=== PATIENT | male | born 1955 | race Caucasian/White ===

== ENCOUNTER 2021-04-28 09:55 | Inpatient (IN) ==
[2021-04-28] MEDS ORDERED: 0.9 % Sodium Chloride 500 ML IVC ONE ×2 (10:07→17:49)
[2021-04-28] MEDS ORDERED: Isovue-370 500 ML BOTTLE IVP ONE (10:07)
[2021-04-28] MEDS ORDERED: *HR* Heparin 5,000 UNIT/ML VIAL IVP STA (10:10)
[2021-04-28] MEDS ORDERED: *HR* FentaNYL (PF) 100 MCG/2 ML VIAL ONE ×2 (10:25→11:25)
[2021-04-28] MEDS ORDERED: ISOVUE-370 200 ML INFUS..BTL ONE ×2 (10:25→12:16)
[2021-04-28] MEDS ORDERED: *HR* Midazolam HCl 2 MG/2 ML VIAL ONE ×2 (10:25→13:01)
[2021-04-28] MEDS ORDERED: Nitroglycerin 1,000 MCG/5 ML VIAL IV ONE (10:25)
[2021-04-28] MEDS ORDERED: *HR* Heparin 10,000 UNIT/10 ML VIAL ONE (10:25)
[2021-04-28] MEDS ORDERED: Heparin 1,000 UNITS/500 mL 500 ML ONE ×2 (10:25→12:26)
[2021-04-28] MEDS ORDERED: 0.9 % Sodium Chloride 2,000 ML ONE (10:25)
[2021-04-28 10:30] LABS: Basophils # 0.1 K/mcL (0.0-0.2); Basophils % 0.5 %; Eosinophils % 0.1 %; Hemoglobin 15.8 g/dL (12.9-16.9); Immature Granulocytes % 0.9 % (0-4); Lymphocytes # 2.5 K/mcL (0.6-4.6); Lymphocytes % 14.8 %; Mean Corpuscular HGB Conc 31.6 g/dL (31.6-35.5); Mean Corpuscular Hemoglobin 30.1 pg (28.0-33.3); Mean Corpuscular Volume 95.2 fL (83.0-100.0); Mean Platelet Volume 9.9 fL (9.4-12.4); Monocytes # 1.7 K/mcL (0.0-1.3); Monocytes % 9.9 %; Neutrophils # 12.6 K/mcL (1.6-8.9); Platelet Count 341 K/mcL (140-400); Red Blood Count 5.25 M/mcL (4.19-5.50); Red Cell Distribution Width 15.3 % (11.5-14.5); Segmented Neutrophils % 73.8 %
[2021-04-28] MEDS ORDERED: Ipratropium/Albuterol Neb 3 ML ONE (10:32)
[2021-04-28] MEDS ORDERED: Ipratropium/Albuterol Neb 3 ML IH ONE (10:35)
[2021-04-28 10:43] LABS: INR 1.1
[2021-04-28 10:45] LABS: Activated Partial Thrombo Time 26.2 Seconds (26.0-36.0)
[2021-04-28] MEDS ORDERED: Furosemide 40 MG/4 ML VIAL IVP ONE (10:54)
[2021-04-28] MEDS ORDERED: Nitroglycerin 0.4 MG TAB.SUBL SL STA (10:57)
[2021-04-28] MEDS ORDERED: Nitroglycerin 0.4 MG TAB.SUBL SL ONE (10:58)
[2021-04-28] MEDS: Furosemide 20 MG/2 ML VIAL IVP ONE (11:00)
[2021-04-28 11:01] LABS: BUN/Creatinine Ratio 15 (6-26); Blood Urea Nitrogen 21 mg/dL (8-23); Calcium 8.6 mg/dL (8.6-10.3); Carbon Dioxide 18 mEq/L (23-29); Chloride 100 mEq/L (98-107); Glucose 188 mg/dL (70-105); Magnesium 2.3 mg/dL (1.6-2.6); Osmolality,Calculated 288 (280-300); Potassium 3.9 mEq/L (3.5-5.1); Sodium 135 mEq/L (136-145); eGFR For African Americans > 60 (> 60); eGFR For Non-African Americans 52 (> 60)
[2021-04-28] MEDS ORDERED: *HR* Etomidate 20 MG/10 ML AMPUL IVP ONE ×2 (11:08→12:52)
[2021-04-28] MEDS ORDERED: *HR* Rocuronium Bromide 50 MG/5 ML VIAL IVP ONE ×2 (11:08→12:52)
[2021-04-28] MEDS ORDERED: *HR* Propofol 200 MG/20 ML VIAL IVP STA (11:09)
[2021-04-28] MEDS ORDERED: Ondansetron 4 MG/2 ML VIAL IVP ONE (11:24)
[2021-04-28] MEDS ORDERED: *HR* FentaNYL (PF) 100 MCG/2 ML VIAL IVP STA (11:24)
[2021-04-28] MEDS ORDERED: Ondansetron 4 MG/2 ML VIAL ONE (11:25)
[2021-04-28] MEDS ORDERED: Furosemide 240 MG in 0.9 % Sodium Chloride 96 ML IVC SCH (12:15)
[2021-04-28] MEDS ORDERED: Tirofiban 12.5 MG/250ML 12.5 MG/250 ML BAG ONE (12:50)
[2021-04-28] MEDS ORDERED: *HR* Heparin 5,000 UNIT/ML VIAL IVP PRN ×2 (13:19→13:39)
[2021-04-28] MEDS: Tirofiban 12.5 MG/250ML 12.5 MG/250 ML BAG IVC SCH (13:30)
[2021-04-28] MEDS ORDERED: Heparin 25,000UNIT/250ML 1/2NS 25,000 UNIT/250 ML IV.SOLN IVC SCH (13:45)
[2021-04-28] MEDS ORDERED: 0.9 % Sodium Chloride 1,000 ML ONE (13:58)
[2021-04-28] MEDS: Norepinephrine 4 MG/254 ML IV.SOLN IVC SCH (15:05)
[2021-04-28] MEDS: FentaNYL (PF) 1,000 MCG/100 ML IV.SOLN IVC SCH (15:55)
[2021-04-28] MEDS: Albumin 25% 25gram/100mL 25 GM/100 ML IV.SOLN IVPB SCH ×2 (15:55→23:05)
[2021-04-28] MEDS ORDERED: Perflutren Lipid Microsphere 1.3 ML in 0.9 % Sodium Chloride 8.7 ML IVP PRN (16:50)
[2021-04-28] MEDS ORDERED: Artificial Tears SOLN 15 ML BOTTLE BOTH EYES PRN (16:53)
[2021-04-28] MEDS ORDERED: 0.9 % Sodium Chloride 500 ML ONE (17:51)
[2021-04-28 17:53] LABS: VBG HCO3 23 mEq/L (21-27); VBG PCO2 54 mmHg (41-51); VBG PH 7.23 pH Units (7.32-7.42); VBG PO2 58 mmHg (25-50)
[2021-04-28 18:06] LABS: Blood Gas FiO2 88.3 %
[2021-04-28 18:06] LABS: ABG Base Excess -6 mEq/L (-2 to 3); ABG HCO3 22 mEq/L (21-27); ABG Oxygen Saturation 98 % (95-98); ABG PCO2 48 mmHg (35-45); ABG PH 7.26 pH Units (7.32-7.45); ABG PO2 130 mmHg (85-104); ABG TCO2 23 mEq/L (20-26); Blood Gas Modality ASSIST CONTROL; Blood Gas VT 500 cc
[2021-04-28 18:29] LABS: Blood Gas VT 500 cc; Mixed Venous Blood pCO2 56 mmHg (44-46); Mixed Venous Blood pH 7.26 pH Units (7.34-7.36); Mixed Venous Blood pO2 34 mmHg (35-45)
[2021-04-28 19:28] LABS: Influenza A PCR Negative (Negative); Influenza B PCR Negative (Negative); Resp. Syncytial Virus PCR Negative (Negative)
[2021-04-28 19:29] LABS: SARS-CoV-2 by PCR (In House) Negative (Negative)
[2021-04-28 19:57] LABS: Hematocrit 42.5 % (37.5-50.1); Mean Corpuscular HGB Conc 32.7 g/dL (31.6-35.5); Mean Corpuscular Hemoglobin 30.8 pg (28.0-33.3); Mean Corpuscular Volume 94.2 fL (83.0-100.0); Mean Platelet Volume 9.4 fL (9.4-12.4); Platelet Count 283 K/mcL (140-400); Red Blood Count 4.51 M/mcL (4.19-5.50); Red Cell Distribution Width 15.2 % (11.5-14.5); White Blood Count 14.7 K/mcL (4.3-11.1)
[2021-04-28] MEDS: Artificial Tears SOLN 15 ML BOTTLE BOTH EYES SCH ×2 (19:58→23:41)
[2021-04-28 19:59] LABS: Hemoglobin 13.9 g/dL (12.9-16.9)
[2021-04-28 19:59] LABS: Blood Gas VT 500 cc; Mixed Venous Blood pCO2 47 mmHg (44-46); Mixed Venous Blood pH 7.32 pH Units (7.34-7.36); Mixed Venous Blood pO2 29 mmHg (35-45)
[2021-04-28 20:00] LABS: VBG Ionized Calcium 0.96 mmol/L (1.15-1.35)
[2021-04-28] MEDS: Chlorhexidine Rinse 15 ML MOUTHWASH MM SCH (20:00)
[2021-04-28 20:08] LABS: ABG Base Excess -2 mEq/L (-2 to 3); ABG HCO3 24 mEq/L (21-27); ABG Oxygen Saturation 95 % (95-98); ABG PCO2 44 mmHg (35-45); ABG PH 7.34 pH Units (7.32-7.45); ABG PO2 82 mmHg (85-104); ABG TCO2 25 mEq/L (20-26); Blood Gas Modality ASSIST CONTROL; Blood Gas VT 500 cc
[2021-04-28 20:10] LABS: Heparin anti-factor XA UFH < 0.04 IU/mL (0.30-0.70); INR 1.1; Prothrombin Time 12.6 Seconds (9.4-12.1)
[2021-04-28] MEDS: Milrinone Premix 20 MG/100 ML 20 MG/100 ML BAG IVC SCH (20:51)
[2021-04-28] MEDS: Midazolam HCl 50 MG/100 ML IV.SOLN IVC SCH (21:00)
[2021-04-28 21:14] LABS: BUN/Creatinine Ratio 18 (6-26); Blood Urea Nitrogen 22 mg/dL (8-23); Calcium 7.6 mg/dL (8.6-10.3); Carbon Dioxide 20 mEq/L (23-29); Chloride 105 mEq/L (98-107); Glucose 117 mg/dL (70-105); Magnesium 2.1 mg/dL (1.6-2.6); Osmolality,Calculated 284 (280-300); Potassium 5.6 mEq/L (3.5-5.1); Sodium 135 mEq/L (136-145); eGFR For African Americans > 60 (> 60); eGFR For Non-African Americans 59 (> 60)
[2021-04-28 21:38] LABS: Blood Gas VT 500 cc; Mixed Venous Blood pCO2 51 mmHg (44-46); Mixed Venous Blood pO2 31 mmHg (35-45)
[2021-04-28 22:25] LABS: Blood Gas VT 500 cc; Mixed Venous Blood pCO2 43 mmHg (44-46); Mixed Venous Blood pH 7.35 pH Units (7.34-7.36); Mixed Venous Blood pO2 32 mmHg (35-45)
[2021-04-28] MEDS ORDERED: 0.9 % Sodium Chloride 250 ML IVC ONE (22:30)
[2021-04-29] MEDS: FentaNYL (PF) 1,000 MCG/100 ML IV.SOLN IVC SCH ×4 (00:12→23:30)
[2021-04-29] MEDS: Tirofiban 12.5 MG/250ML 12.5 MG/250 ML BAG IVC SCH (02:00)
[2021-04-29] MEDS: Norepinephrine 4 MG/254 ML IV.SOLN IVC SCH ×3 (03:21→21:22)
[2021-04-29] MEDS: Artificial Tears SOLN 15 ML BOTTLE BOTH EYES SCH ×6 (03:21→23:31)
[2021-04-29 04:15] LABS: VBG Ionized Calcium 1.07 mmol/L (1.15-1.35)
[2021-04-29 04:25] LABS: Alanine Aminotransferase 62 Units/L (7-52); Albumin 3.2 g/dL (3.5-5.7); Albumin/Globulin Ratio 1.5 (1.1-2.2); Alkaline Phosphatase 71 Units/L (34-104); Aspartate Amino Transferase 221 Units/L (13-39); BUN/Creatinine Ratio 21 (6-26); Bilirubin,Direct 0.1 mg/dL (0.0-0.2); Bilirubin,Indirect 0.4 mg/dL (0.0-1.0); Bilirubin,Total 0.5 mg/dL (0.3-1.0); Blood Urea Nitrogen 22 mg/dL (8-23); Calcium 7.6 mg/dL (8.6-10.3); Carbon Dioxide 25 mEq/L (23-29); Chloride 106 mEq/L (98-107); Chol/HDL Ratio 9.5 (0-4.9); Cholesterol 161 mg/dL (< 200); Globulin 2.1 g/dL (2.4-3.5); Glucose 108 mg/dL (70-105); HDL Cholesterol 17 mg/dL (40-59); LDL Cholesterol,Calculated 104 mg/dL (< 100); Magnesium 2.1 mg/dL (1.6-2.6); Osmolality,Calculated 288 (280-300); Phosphorous 3.8 mg/dL (2.7-4.5); Potassium 3.9 mEq/L (3.5-5.1); Sodium 137 mEq/L (136-145); Total Protein 5.3 g/dL (6.4-8.9); Triglycerides 200 mg/dL (< 150); eGFR For African Americans > 60 (> 60); eGFR For Non-African Americans > 60 (> 60)
[2021-04-29 04:39] LABS: Blood Gas VT 500 cc; Mixed Venous Blood pCO2 46 mmHg (44-46); Mixed Venous Blood pH 7.35 pH Units (7.34-7.36); Mixed Venous Blood pO2 39 mmHg (35-45)
[2021-04-29 04:44] LABS: ABG Base Excess 0 mEq/L (-2 to 3); ABG HCO3 25 mEq/L (21-27); ABG Oxygen Saturation 95 % (95-98); ABG PCO2 43 mmHg (35-45); ABG PH 7.37 pH Units (7.32-7.45); ABG PO2 77 mmHg (85-104); ABG TCO2 26 mEq/L (20-26); Blood Gas VT 500 cc
[2021-04-29 05:01] LABS: Basophils # 0.1 K/mcL (0.0-0.2); Basophils % 0.4 %; Eosinophils % 0.3 %; Hemoglobin 12.7 g/dL (12.9-16.9); Immature Granulocytes % 0.6 % (0-4); Lymphocytes # 1.9 K/mcL (0.6-4.6); Mean Corpuscular HGB Conc 31.8 g/dL (31.6-35.5); Mean Corpuscular Hemoglobin 29.9 pg (28.0-33.3); Mean Corpuscular Volume 94.1 fL (83.0-100.0); Mean Platelet Volume 10.2 fL (9.4-12.4); Monocytes # 1.6 K/mcL (0.0-1.3); Neutrophils # 9.9 K/mcL (1.6-8.9); Platelet Count 283 K/mcL (140-400); Red Blood Count 4.25 M/mcL (4.19-5.50); Red Cell Distribution Width 15.4 % (11.5-14.5); Segmented Neutrophils % 72.7 %; White Blood Count 13.6 K/mcL (4.3-11.1)
[2021-04-29] MEDS: Calcium Gluconate 1gm/50mL 1 GM/50 ML BAG IVPB PRN (05:36)
[2021-04-29] MEDS: Milrinone Premix 20 MG/100 ML 20 MG/100 ML BAG IVC SCH (06:36)
[2021-04-29] MEDS: Chlorhexidine Rinse 15 ML MOUTHWASH MM SCH ×2 (08:07→20:04)
[2021-04-29] MEDS: Pantoprazole 40 MG VIAL IVP SCH ×2 (08:08→15:11)
[2021-04-29] MEDS: Aspirin 81 MG TAB.CHEW PO SCH (08:17)
[2021-04-29] MEDS ORDERED: D5% in Water 250 ML ONE (08:36)
[2021-04-29] MEDS ORDERED: Pantoprazole 40 MG VIAL IVP SCH (09:00)
[2021-04-29] MEDS: Heparin 25,000UNIT/250ML 1/2NS 25,000 UNIT/250 ML IV.SOLN IVC SCH (09:37)
[2021-04-29] MEDS: Midazolam HCl 50 MG/100 ML IV.SOLN IVC SCH ×2 (10:00→19:13)
[2021-04-29 10:57] LABS: ABG Base Excess 0 mEq/L (-2 to 3); ABG HCO3 25 mEq/L (21-27); ABG Oxygen Saturation 97 % (95-98); ABG PCO2 41 mmHg (35-45); ABG PO2 96 mmHg (85-104); ABG TCO2 27 mEq/L (20-26); Blood Gas VT 500 cc
[2021-04-29 10:57] LABS: Estimated Average Glucose 114 mg/dl; Hemoglobin A1C 5.6 %
[2021-04-29 11:02] LABS: Blood Gas VT 500 cc; Mixed Venous Blood pCO2 42 mmHg (44-46); Mixed Venous Blood pH 7.39 pH Units (7.34-7.36); Mixed Venous Blood pO2 36 mmHg (35-45)
[2021-04-29] MEDS: Furosemide 240 MG in 0.9 % Sodium Chloride 96 ML IVC SCH (11:07)
[2021-04-29] MEDS: Dexmedetomidine HCl 400 MCG/100 ML MLS IVC SCH ×3 (11:18→20:04)
[2021-04-29] MEDS: Albumin 25% 25gram/100mL 25 GM/100 ML IV.SOLN IVPB SCH ×3 (11:26→23:31)
[2021-04-29 16:22] LABS: Blood Gas VT 500 cc; Mixed Venous Blood pCO2 44 mmHg (44-46); Mixed Venous Blood pH 7.42 pH Units (7.34-7.36); Mixed Venous Blood pO2 35 mmHg (35-45)
[2021-04-29 23:41] LABS: Blood Gas VT 500 cc; Mixed Venous Blood pCO2 40 mmHg (44-46); Mixed Venous Blood pH 7.46 pH Units (7.34-7.36); Mixed Venous Blood pO2 36 mmHg (35-45)
[2021-04-30] MEDS: Dexmedetomidine HCl 400 MCG/100 ML MLS IVC SCH ×7 (00:09→23:37)
[2021-04-30] MEDS: Heparin 25,000UNIT/250ML 1/2NS 25,000 UNIT/250 ML IV.SOLN IVC SCH ×2 (02:48→21:33)
[2021-04-30] MEDS: Artificial Tears SOLN 15 ML BOTTLE BOTH EYES SCH ×6 (03:07→23:34)
[2021-04-30 03:26] LABS: Basophils # 0.1 K/mcL (0.0-0.2); Basophils % 0.7 %; Eosinophils # 0.1 K/mcL (0.0-0.6); Eosinophils % 0.5 %; Hematocrit 41.7 % (37.5-50.1); Hemoglobin 13.6 g/dL (12.9-16.9); Immature Granulocytes % 0.6 % (0-4); Lymphocytes # 2.2 K/mcL (0.6-4.6); Lymphocytes % 12.7 %; Mean Corpuscular HGB Conc 32.6 g/dL (31.6-35.5); Mean Corpuscular Hemoglobin 30.4 pg (28.0-33.3); Mean Corpuscular Volume 93.1 fL (83.0-100.0); Mean Platelet Volume 9.9 fL (9.4-12.4); Monocytes # 1.8 K/mcL (0.0-1.3); Monocytes % 10.5 %; Neutrophils # 12.8 K/mcL (1.6-8.9); Platelet Count 226 K/mcL (140-400); Red Blood Count 4.48 M/mcL (4.19-5.50); White Blood Count 17.1 K/mcL (4.3-11.1)
[2021-04-30 03:44] LABS: BUN/Creatinine Ratio 16 (6-26); Blood Urea Nitrogen 15 mg/dL (8-23); Calcium 8.4 mg/dL (8.6-10.3); Carbon Dioxide 29 mEq/L (23-29); Chloride 97 mEq/L (98-107); Glucose 126 mg/dL (70-105); Osmolality,Calculated 286 (280-300); Phosphorous 2.5 mg/dL (2.7-4.5); Sodium 137 mEq/L (136-145); eGFR For African Americans > 60 (> 60); eGFR For Non-African Americans > 60 (> 60)
[2021-04-30] MEDS: Calcium Gluconate 1gm/50mL 1 GM/50 ML BAG IVPB PRN ×4 (04:30→22:19)
[2021-04-30] MEDS: Potassium Chloride 40 MEQ/200 ML BAG IVPB PRN ×4 (04:30→15:11)
[2021-04-30] MEDS: FentaNYL (PF) 1,000 MCG/100 ML IV.SOLN IVC SCH ×4 (04:40→19:49)
[2021-04-30 04:42] LABS: ABG Base Excess 5 mEq/L (-2 to 3); ABG HCO3 29 mEq/L (21-27); ABG Oxygen Saturation 97 % (95-98); ABG PCO2 41 mmHg (35-45); ABG PH 7.47 pH Units (7.32-7.45); ABG PO2 84 mmHg (85-104); ABG TCO2 30 mEq/L (20-26); Blood Gas Modality ASSIST CONTROL; Blood Gas VT 500 cc
[2021-04-30] MEDS ORDERED: Potassium Phosphate 44 MEQ in 0.9 % Sodium Chloride 250 ML IVPB ONE (05:00)
[2021-04-30 05:31] LABS: Blood Gas VT 500 cc; Mixed Venous Blood pCO2 40 mmHg (44-46); Mixed Venous Blood pH 7.48 pH Units (7.34-7.36); Mixed Venous Blood pO2 34 mmHg (35-45)
[2021-04-30] MEDS: Albumin 25% 25gram/100mL 25 GM/100 ML IV.SOLN IVPB SCH ×4 (06:07→23:37)
[2021-04-30] MEDS ORDERED: Amiodarone Premix 150 MG/100 ML BAG IVPB ONE (06:25)
[2021-04-30] MEDS ORDERED: Amiodarone Premix 360 MG/200 ML BAG IVC ONE (06:25)
[2021-04-30] MEDS: Amiodarone Premix 360 MG/200 ML BAG IVC SCH ×2 (06:56→12:47)
[2021-04-30] MEDS: Furosemide 240 MG in 0.9 % Sodium Chloride 96 ML IVC SCH (07:10)
[2021-04-30] MEDS: Norepinephrine 4 MG/254 ML IV.SOLN IVC SCH ×2 (07:40→17:25)
[2021-04-30] MEDS: Chlorhexidine Rinse 15 ML MOUTHWASH MM SCH ×2 (08:28→19:48)
[2021-04-30] MEDS: Pantoprazole 40 MG VIAL IVP SCH ×2 (08:28→16:33)
[2021-04-30] MEDS: Aspirin 81 MG TAB.CHEW PO SCH (08:29)
[2021-04-30 09:30] LABS: RBC,Pleural Fluid 2000 RBC/mcL
[2021-04-30] MEDS: Midazolam HCl 50 MG/100 ML IV.SOLN IVC SCH (10:16)
[2021-04-30 11:21] LABS: Appearance of Pleural Fl Hazy (Clear)
[2021-04-30 11:31] LABS: VBG Ionized Calcium 0.97 mmol/L (1.15-1.35)
[2021-04-30 11:32] LABS: Basophils,Pleural Fluid 0 %; Eosinophils,Pleural Fluid 0 %
[2021-04-30 11:33] LABS: Blood Gas VT 500 cc; Mixed Venous Blood pCO2 42 mmHg (44-46); Mixed Venous Blood pH 7.45 pH Units (7.34-7.36); Mixed Venous Blood pO2 29 mmHg (35-45)
[2021-04-30 12:25] LABS: Lactate Dehydrogenase 829 Units/L (140-271); Total Protein 6.8 g/dL (6.4-8.9)
[2021-04-30 17:55] LABS: Blood Gas VT 500 cc; VBG HCO3 27 mEq/L (21-27); VBG PCO2 38 mmHg (41-51); VBG PH 7.46 pH Units (7.32-7.42); VBG PO2 34 mmHg (25-50)
[2021-04-30] MEDS ORDERED: Perflutren Lipid Microsphere 1.3 ML in 0.9 % Sodium Chloride 8.7 ML IVP PRN (19:51)
[2021-04-30 21:20] LABS: VBG Ionized Calcium 1.04 mmol/L (1.15-1.35)
[2021-04-30] MEDS ORDERED: Potassium Chloride Elixir 20 MEQ/15 ML UDC GTUBE ONE (21:59)
[2021-05-01] MEDS: FentaNYL (PF) 1,000 MCG/100 ML IV.SOLN IVC SCH ×5 (00:51→20:32)
[2021-05-01] MEDS: Amiodarone Premix 360 MG/200 ML BAG IVC SCH ×2 (00:51→14:25)
[2021-05-01] MEDS: Artificial Tears SOLN 15 ML BOTTLE BOTH EYES SCH ×6 (03:05→23:08)
[2021-05-01 03:41] LABS: Hematocrit 38.9 % (37.5-50.1); Hemoglobin 12.6 g/dL (12.9-16.9); Mean Corpuscular HGB Conc 32.4 g/dL (31.6-35.5); Mean Corpuscular Hemoglobin 29.9 pg (28.0-33.3); Mean Corpuscular Volume 92.2 fL (83.0-100.0); Mean Platelet Volume 10.1 fL (9.4-12.4); Platelet Count 205 K/mcL (140-400); Red Blood Count 4.22 M/mcL (4.19-5.50); Red Cell Distribution Width 15.5 % (11.5-14.5); White Blood Count 14.8 K/mcL (4.3-11.1)
[2021-05-01] MEDS: Dexmedetomidine HCl 400 MCG/100 ML MLS IVC SCH ×5 (03:45→19:58)
[2021-05-01 03:52] LABS: Albumin 4.8 g/dL (3.5-5.7)
[2021-05-01 03:53] LABS: BUN/Creatinine Ratio 13 (6-26); Blood Urea Nitrogen 14 mg/dL (8-23); Carbon Dioxide 29 mEq/L (23-29); Chloride 94 mEq/L (98-107); Glucose 118 mg/dL (70-105); Osmolality,Calculated 282 (280-300); Phosphorous 3.8 mg/dL (2.7-4.5); Potassium 3.3 mEq/L (3.5-5.1); Sodium 135 mEq/L (136-145); eGFR For African Americans > 60 (> 60); eGFR For Non-African Americans > 60 (> 60)
[2021-05-01 04:12] LABS: ABG Base Excess 4 mEq/L (-2 to 3); ABG HCO3 29 mEq/L (21-27); ABG Oxygen Saturation 96 % (95-98); ABG PCO2 41 mmHg (35-45); ABG PH 7.45 pH Units (7.32-7.45); ABG PO2 79 mmHg (85-104); ABG TCO2 30 mEq/L (20-26); Blood Gas VT 500 cc
[2021-05-01] MEDS ORDERED: Potassium Chloride Elixir 20 MEQ/15 ML UDC PO ONE (04:14)
[2021-05-01] MEDS: Calcium Gluconate 1gm/50mL 1 GM/50 ML BAG IVPB PRN ×3 (04:24→19:59)
[2021-05-01] MEDS: Norepinephrine 4 MG/254 ML IV.SOLN IVC SCH ×3 (05:43→22:53)
[2021-05-01] MEDS: Albumin 25% 25gram/100mL 25 GM/100 ML IV.SOLN IVPB SCH (06:03)
[2021-05-01] MEDS: Furosemide 240 MG in 0.9 % Sodium Chloride 96 ML IVC SCH (06:47)
[2021-05-01] MEDS: Pantoprazole 40 MG VIAL IVP SCH ×2 (07:52→16:02)
[2021-05-01] MEDS: Chlorhexidine Rinse 15 ML MOUTHWASH MM SCH ×3 (07:52→19:59)
[2021-05-01] MEDS: Aspirin 81 MG TAB.CHEW PO SCH (07:53)
[2021-05-01] MEDS ORDERED: Potassium Chloride Elixir 20 MEQ/15 ML UDC GTUBE SCH (09:00)
[2021-05-01] MEDS: Potassium Chloride 40 MEQ/200 ML BAG IVPB PRN ×2 (10:57→12:08)
[2021-05-01] MEDS: Heparin 25,000UNIT/250ML 1/2NS 25,000 UNIT/250 ML IV.SOLN IVC SCH ×3 (11:09→22:57)
[2021-05-01] MEDS: *HR* Heparin 5,000 UNIT/ML VIAL IVP PRN (11:10)
[2021-05-01 14:08] LABS: VBG Ionized Calcium 1.07 mmol/L (1.15-1.35)
[2021-05-01 15:22] LABS: Basophils # 0.1 K/mcL (0.0-0.2); Basophils % 0.6 %; Eosinophils # 0.1 K/mcL (0.0-0.6); Eosinophils % 0.3 %; Hematocrit 37.4 % (37.5-50.1); Hemoglobin 12.2 g/dL (12.9-16.9); Immature Granulocytes % 0.8 % (0-4); Lymphocytes # 1.3 K/mcL (0.6-4.6); Lymphocytes % 8.8 %; Mean Corpuscular HGB Conc 32.6 g/dL (31.6-35.5); Mean Corpuscular Hemoglobin 30.5 pg (28.0-33.3); Mean Corpuscular Volume 93.5 fL (83.0-100.0); Mean Platelet Volume 10.5 fL (9.4-12.4); Monocytes # 1.6 K/mcL (0.0-1.3); Monocytes % 10.6 %; Neutrophils # 11.9 K/mcL (1.6-8.9); Platelet Count 200 K/mcL (140-400); Red Cell Distribution Width 15.7 % (11.5-14.5); Segmented Neutrophils % 78.9 %; White Blood Count 15.1 K/mcL (4.3-11.1)
[2021-05-01 15:30] LABS: INR 1.4; Prothrombin Time 15.7 Seconds (9.4-12.1)
[2021-05-01 15:32] LABS: Activated Partial Thrombo Time 71.3 Seconds (26.0-36.0)
[2021-05-01 15:43] LABS: BUN/Creatinine Ratio 15 (6-26); Blood Urea Nitrogen 16 mg/dL (8-23); Calcium 9.7 mg/dL (8.6-10.3); Carbon Dioxide 29 mEq/L (23-29); Chloride 96 mEq/L (98-107); Chol/HDL Ratio 5.8 (0-4.9); Cholesterol 121 mg/dL (< 200); Glucose 126 mg/dL (70-105); HDL Cholesterol 21 mg/dL (40-59); LDL Cholesterol,Calculated 79 mg/dL (< 100); Osmolality,Calculated 283 (280-300); Potassium 3.7 mEq/L (3.5-5.1); Sodium 135 mEq/L (136-145); Triglycerides 104 mg/dL (< 150); eGFR For African Americans > 60 (> 60); eGFR For Non-African Americans > 60 (> 60)
[2021-05-01] MEDS ORDERED: Perflutren Lipid Microsphere 1.3 ML in 0.9 % Sodium Chloride 8.7 ML IVP PRN (15:47)
[2021-05-01 16:12] LABS: Estimated Average Glucose 114 mg/dl; Hemoglobin A1C 5.6 %
[2021-05-01] MEDS ORDERED: Furosemide 40 MG/4 ML VIAL IVP SCH (17:00)
[2021-05-01 17:57] LABS: VBG Ionized Calcium 1.07 mmol/L (1.15-1.35)
[2021-05-01] MEDS: Midazolam HCl 50 MG/100 ML IV.SOLN IVC SCH ×2 (18:07→19:33)
[2021-05-02] MEDS: Dexmedetomidine HCl 400 MCG/100 ML MLS IVC SCH ×5 (00:13→18:19)
[2021-05-02] MEDS: FentaNYL (PF) 1,000 MCG/100 ML IV.SOLN IVC SCH ×5 (02:04→19:38)
[2021-05-02] MEDS: Amiodarone Premix 360 MG/200 ML BAG IVC SCH ×2 (03:09→15:08)
[2021-05-02] MEDS: Artificial Tears SOLN 15 ML BOTTLE BOTH EYES SCH ×5 (04:04→19:35)
[2021-05-02 04:08] LABS: ABG Base Excess 4 mEq/L (-2 to 3); ABG HCO3 29 mEq/L (21-27); ABG Oxygen Saturation 98 % (95-98); ABG PCO2 44 mmHg (35-45); ABG PH 7.42 pH Units (7.32-7.45); ABG PO2 108 mmHg (85-104); ABG TCO2 30 mEq/L (20-26); Blood Gas VT 500 cc
[2021-05-02 04:13] LABS: ABG Base Excess -4 mEq/L (-2 to 3); ABG HCO3 22 mEq/L (21-27); ABG Oxygen Saturation 92 % (95-98); ABG PCO2 43 mmHg (35-45); ABG PH 7.32 pH Units (7.32-7.45); ABG PO2 70 mmHg (85-104); ABG TCO2 23 mEq/L (20-26); Blood Gas VT 500 cc
[2021-05-02 05:11] LABS: Basophils # 0.1 K/mcL (0.0-0.2); Basophils % 0.5 %; Eosinophils # 0.2 K/mcL (0.0-0.6); Eosinophils % 1.2 %; Hematocrit 36.3 % (37.5-50.1); Hemoglobin 11.9 g/dL (12.9-16.9); Immature Granulocytes % 0.4 % (0-4); Lymphocytes # 1.6 K/mcL (0.6-4.6); Lymphocytes % 12.5 %; Mean Corpuscular HGB Conc 32.8 g/dL (31.6-35.5); Mean Corpuscular Hemoglobin 30.6 pg (28.0-33.3); Mean Corpuscular Volume 93.3 fL (83.0-100.0); Mean Platelet Volume 10.1 fL (9.4-12.4); Monocytes # 1.4 K/mcL (0.0-1.3); Neutrophils # 9.6 K/mcL (1.6-8.9); Platelet Count 199 K/mcL (140-400); Red Blood Count 3.89 M/mcL (4.19-5.50); Red Cell Distribution Width 15.9 % (11.5-14.5); Segmented Neutrophils % 74.4 %; White Blood Count 12.9 K/mcL (4.3-11.1)
[2021-05-02 05:19] LABS: VBG Ionized Calcium 1.06 mmol/L (1.15-1.35)
[2021-05-02 05:31] LABS: Alanine Aminotransferase 27 Units/L (7-52); Albumin 4.3 g/dL (3.5-5.7); Alkaline Phosphatase 59 Units/L (34-104); Aspartate Amino Transferase 29 Units/L (13-39); BUN/Creatinine Ratio 18 (6-26); Bilirubin,Total 2.6 mg/dL (0.3-1.0); Blood Urea Nitrogen 16 mg/dL (8-23); Calcium 9.1 mg/dL (8.6-10.3); Carbon Dioxide 29 mEq/L (23-29); Chloride 97 mEq/L (98-107); Globulin 2.2 g/dL (2.4-3.5); Glucose 119 mg/dL (70-105); Magnesium 2.4 mg/dL (1.6-2.6); Osmolality,Calculated 278 (280-300); Phosphorous 3.1 mg/dL (2.7-4.5); Potassium 3.5 mEq/L (3.5-5.1); Sodium 133 mEq/L (136-145); Total Protein 6.5 g/dL (6.4-8.9); eGFR For African Americans > 60 (> 60); eGFR For Non-African Americans > 60 (> 60)
[2021-05-02] MEDS ORDERED: Aspirin 81 MG TAB.CHEW PO ONE (06:00)
[2021-05-02] MEDS ORDERED: NiCARdipine 2.5 MG/10 ML Syringe IVPB ONE (06:15)
[2021-05-02] MEDS ORDERED: *HR* Midazolam HCl 5 MG/5 ML VIAL IVP ONE (06:18)
[2021-05-02] MEDS ORDERED: *HR* FentaNYL (PF) 1,000 MCG/20 ML VIAL ONE (06:19)
[2021-05-02] MEDS ORDERED: Potassium Chloride Elixir 20 MEQ/15 ML UDC PO ONE (06:21)
[2021-05-02] MEDS ORDERED: *HR* Rocuronium Bromide 50 MG/5 ML VIAL ONE (06:21)
[2021-05-02] MEDS ORDERED: EPINEPHrine 1 MG/ML VIAL ONE (06:22)
[2021-05-02] MEDS ORDERED: Calcium Gluconate 1,000 MG/10 ML VIAL ONE (06:22)
[2021-05-02] MEDS ORDERED: Protamine Sulfate 250 MG/25 ML VIAL IVP ONE (06:22)
[2021-05-02] MEDS: Calcium Gluconate 1gm/50mL 1 GM/50 ML BAG IVPB PRN (06:22)
[2021-05-02] MEDS ORDERED: EPHEDrine 50 MG/ML VIAL ONE (06:32)
[2021-05-02] MEDS ORDERED: CeFAZolin Syr 2,000MG/20 ML 2,000 MG/20 ML SYRINGE IVPB ONE (07:00)
[2021-05-02] MEDS ORDERED: Heparin 15,000 UNIT in 0.9 % Sodium Chloride 500 ML IV ONE (07:30)
[2021-05-02] MEDS ORDERED: Norepinephrine 4 MG in 0.9 % Sodium Chloride 250 ML IVC PRN (07:30)
[2021-05-02] MEDS ORDERED: del Nido Cardioplegia Solution PF ONE (07:30)
[2021-05-02] MEDS: Pantoprazole 40 MG VIAL IVP SCH (07:39)
[2021-05-02] MEDS: Piperacillin/Tazobactam 3.375 GM in 0.9 % Sodium Chloride Mini Bag 100 ML IVPB SCH ×2 (07:45→17:52)
[2021-05-02] MEDS ORDERED: Buckersberg's Blood Cardioplegia PF SCH ×2 (08:00)
[2021-05-02] MEDS ORDERED: del Nido Cardioplegia Solution PF SCH (08:00)
[2021-05-02] MEDS: Chlorhexidine Rinse 15 ML MOUTHWASH MM SCH ×3 (08:22→19:35)
[2021-05-02] MEDS: Aspirin 81 MG TAB.CHEW PO SCH (08:22)
[2021-05-02] MEDS: Heparin 25,000UNIT/250ML 1/2NS 25,000 UNIT/250 ML IV.SOLN IVC SCH ×2 (09:26→19:17)
[2021-05-02] MEDS: Norepinephrine 4 MG/254 ML IV.SOLN IVC SCH ×2 (09:40→22:06)
[2021-05-02] MEDS: Midazolam HCl 50 MG/100 ML IV.SOLN IVC SCH ×2 (11:18→19:36)
[2021-05-02] MEDS ORDERED: Heparin 1,000 UNITS/500 mL 500 ML ONE (14:35)
[2021-05-02] MEDS ORDERED: Nitroglycerin 1,000 MCG/5 ML VIAL IV ONE (14:35)
[2021-05-02] MEDS ORDERED: ISOVUE-370 200 ML INFUS..BTL ONE (14:35)
[2021-05-02] MEDS ORDERED: *HR* Heparin 10,000 UNIT/10 ML VIAL ONE (14:35)
[2021-05-02] MEDS ORDERED: 0.9 % Sodium Chloride 1,000 ML ONE ×2 (14:35→14:58)
[2021-05-02] MEDS ORDERED: Tirofiban 12.5 MG/250ML 12.5 MG/250 ML BAG ONE (16:21)
[2021-05-02] MEDS ORDERED: *HR* Ticagrelor 90 MG TABLET ONE (16:56)
[2021-05-02] MEDS ORDERED: 0.9 % Sodium Chloride 250 ML ONE (17:33)
[2021-05-02] MEDS ORDERED: D5% in Water 250 ML ONE (17:44)
[2021-05-03] MEDS: Artificial Tears SOLN 15 ML BOTTLE BOTH EYES SCH ×6 (00:13→20:09)
[2021-05-03] MEDS: Piperacillin/Tazobactam 3.375 GM in 0.9 % Sodium Chloride Mini Bag 100 ML IVPB SCH ×3 (00:13→15:15)
[2021-05-03] MEDS: Dexmedetomidine HCl 400 MCG/100 ML MLS IVC SCH ×5 (00:14→20:12)
[2021-05-03] MEDS: FentaNYL (PF) 1,000 MCG/100 ML IV.SOLN IVC SCH ×5 (00:14→20:09)
[2021-05-03 00:58] LABS: Fluid Source for Cholesterol PLEURAL FLUID
[2021-05-03] MEDS: Amiodarone Premix 360 MG/200 ML BAG IVC SCH ×2 (01:36→13:58)
[2021-05-03] MEDS ORDERED: 0.9 % Sodium Chloride 1,000 ML ONE (03:08)
[2021-05-03 04:00] LABS: Basophils # 0.1 K/mcL (0.0-0.2); Basophils % 0.8 %; Eosinophils # 0.4 K/mcL (0.0-0.6); Eosinophils % 3.3 %; Hematocrit 35.6 % (37.5-50.1); Hemoglobin 11.3 g/dL (12.9-16.9); Immature Granulocytes % 0.5 % (0-4); Lymphocytes # 1.2 K/mcL (0.6-4.6); Lymphocytes % 11.1 %; Mean Corpuscular HGB Conc 31.7 g/dL (31.6-35.5); Mean Corpuscular Volume 94.4 fL (83.0-100.0); Mean Platelet Volume 10.1 fL (9.4-12.4); Monocytes # 1.3 K/mcL (0.0-1.3); Neutrophils # 7.8 K/mcL (1.6-8.9); Platelet Count 202 K/mcL (140-400); Red Blood Count 3.77 M/mcL (4.19-5.50); Red Cell Distribution Width 16.1 % (11.5-14.5); Segmented Neutrophils % 72.3 %; White Blood Count 10.8 K/mcL (4.3-11.1)
[2021-05-03 04:17] LABS: BUN/Creatinine Ratio 20 (6-26); Blood Urea Nitrogen 17 mg/dL (8-23); Calcium 8.3 mg/dL (8.6-10.3); Carbon Dioxide 27 mEq/L (23-29); Chloride 99 mEq/L (98-107); Glucose 105 mg/dL (70-105); Magnesium 2.3 mg/dL (1.6-2.6); Osmolality,Calculated 280 (280-300); Potassium 3.6 mEq/L (3.5-5.1); Sodium 134 mEq/L (136-145); eGFR For African Americans > 60 (> 60); eGFR For Non-African Americans > 60 (> 60)
[2021-05-03] MEDS: Midazolam HCl 50 MG/100 ML IV.SOLN IVC SCH ×5 (04:17→22:37)
[2021-05-03 04:24] LABS: Troponin I 9.89 ng/mL (< 0.04)
[2021-05-03 04:45] LABS: ABG Base Excess 2 mEq/L (-2 to 3); ABG HCO3 26 mEq/L (21-27); ABG Oxygen Saturation 90 % (95-98); ABG PCO2 39 mmHg (35-45); ABG PH 7.44 pH Units (7.32-7.45); ABG PO2 57 mmHg (85-104); ABG TCO2 27 mEq/L (20-26); Blood Gas VT 500 cc
[2021-05-03 05:14] LABS: Phosphorous 2.9 mg/dL (2.7-4.5)
[2021-05-03] MEDS: Pantoprazole 40 MG VIAL IVP SCH (07:56)
[2021-05-03] MEDS: Chlorhexidine Rinse 15 ML MOUTHWASH MM SCH ×2 (07:56→20:09)
[2021-05-03] MEDS: Heparin 25,000UNIT/250ML 1/2NS 25,000 UNIT/250 ML IV.SOLN IVC SCH (08:54)
[2021-05-03] MEDS: Aspirin 81 MG TAB.CHEW PO SCH (08:57)
[2021-05-03 10:49] LABS: Cholesterol,Body Fluid 28 mg/dL
[2021-05-03] MEDS ORDERED: D10% in Water 500 ML IVC PRN (11:47)
[2021-05-03 12:45] LABS: Hematocrit 34.8 % (37.5-50.1); Hemoglobin 11.4 g/dL (12.9-16.9)
[2021-05-03] MEDS: Norepinephrine 4 MG/254 ML IV.SOLN IVC SCH (13:03)
[2021-05-03] MEDS ORDERED: *HR* EPINEPHrine 1 MG/10 ML SYRINGE INTRATRACH PRN (13:44)
[2021-05-03] MEDS ORDERED: Furosemide 40 MG/4 ML VIAL IVP ONE ×2 (15:49→20:00)
[2021-05-03] MEDS ORDERED: *HR* Atropine Sulfate 1 MG/10 ML SYRINGE ONE (16:12)
[2021-05-03] MEDS ORDERED: *HR* LORazepam 2 MG/ML VIAL IVP PRN (17:00)
[2021-05-03] MEDS ORDERED: Clinimix E 5%-15% SOLUTION 2,000 ML with MVI, adult with vitamin K 10 ML IVC SCH (17:00)
[2021-05-03 17:19] LABS: Appearance of Body Fluid Cloudy (Clear); Volume of Body Fluid 20 mL
[2021-05-03] MEDS: Fat Emulsion 250 ML IVPB SCH (17:30)
[2021-05-03 18:31] LABS: Hematocrit 36.2 % (37.5-50.1); Hemoglobin 11.9 g/dL (12.9-16.9)
[2021-05-03 18:42] LABS: ABG Base Excess 2 mEq/L (-2 to 3); ABG HCO3 26 mEq/L (21-27); ABG Oxygen Saturation 93 % (95-98); ABG PCO2 38 mmHg (35-45); ABG PH 7.45 pH Units (7.32-7.45); ABG PO2 64 mmHg (85-104); ABG TCO2 28 mEq/L (20-26); Blood Gas Modality ASSIST CONTROL; Blood Gas VT 450 cc
[2021-05-03 23:20] LABS: ABG Base Excess 2 mEq/L (-2 to 3); ABG HCO3 26 mEq/L (21-27); ABG Oxygen Saturation 90 % (95-98); ABG PCO2 39 mmHg (35-45); ABG PH 7.43 pH Units (7.32-7.45); ABG PO2 56 mmHg (85-104); ABG TCO2 28 mEq/L (20-26); Blood Gas Modality AF; Blood Gas VT 450 cc
[2021-05-04] MEDS: Piperacillin/Tazobactam 3.375 GM in 0.9 % Sodium Chloride Mini Bag 100 ML IVPB SCH ×4 (00:02→23:04)
[2021-05-04] MEDS: Dexmedetomidine HCl 400 MCG/100 ML MLS IVC SCH ×4 (00:16→20:25)
[2021-05-04] MEDS: FentaNYL (PF) 1,000 MCG/100 ML IV.SOLN IVC SCH ×5 (00:17→21:05)
[2021-05-04 01:03] LABS: Hematocrit 36.1 % (37.5-50.1); Hemoglobin 11.5 g/dL (12.9-16.9)
[2021-05-04] MEDS: Norepinephrine 4 MG/254 ML IV.SOLN IVC SCH ×2 (01:37→17:30)
[2021-05-04] MEDS: Artificial Tears SOLN 15 ML BOTTLE BOTH EYES SCH ×7 (03:12→23:06)
[2021-05-04] MEDS: Midazolam HCl 50 MG/100 ML IV.SOLN IVC SCH ×3 (03:32→23:31)
[2021-05-04 03:39] LABS: ABG Base Excess 1 mEq/L (-2 to 3); ABG HCO3 27 mEq/L (21-27); ABG Oxygen Saturation 90 % (95-98); ABG PCO2 45 mmHg (35-45); ABG PH 7.38 pH Units (7.32-7.45); ABG PO2 61 mmHg (85-104); ABG TCO2 28 mEq/L (20-26); Blood Gas Modality AF; Blood Gas VT 450 cc
[2021-05-04 03:53] LABS: Basophils # 0.1 K/mcL (0.0-0.2); Basophils % 0.8 %; Eosinophils # 0.2 K/mcL (0.0-0.6); Eosinophils % 1.6 %; Hematocrit 36.3 % (37.5-50.1); Hemoglobin 11.5 g/dL (12.9-16.9); Immature Granulocytes % 0.6 % (0-4); Lymphocytes % 7.6 %; Mean Corpuscular HGB Conc 31.7 g/dL (31.6-35.5); Mean Corpuscular Hemoglobin 29.8 pg (28.0-33.3); Mean Platelet Volume 10.4 fL (9.4-12.4); Monocytes # 1.4 K/mcL (0.0-1.3); Monocytes % 10.6 %; Neutrophils # 10.2 K/mcL (1.6-8.9); Platelet Count 219 K/mcL (140-400); Red Blood Count 3.86 M/mcL (4.19-5.50); Red Cell Distribution Width 16.5 % (11.5-14.5); Segmented Neutrophils % 78.8 %
[2021-05-04 04:01] LABS: Alanine Aminotransferase 31 Units/L (7-52); Albumin 3.7 g/dL (3.5-5.7); Albumin/Globulin Ratio 1.5 (1.1-2.2); Alkaline Phosphatase 62 Units/L (34-104); Aspartate Amino Transferase 35 Units/L (13-39); BUN/Creatinine Ratio 22 (6-26); Bilirubin,Direct 1.9 mg/dL (0.0-0.2); Blood Urea Nitrogen 25 mg/dL (8-23); Calcium 7.9 mg/dL (8.6-10.3); Carbon Dioxide 27 mEq/L (23-29); Chloride 98 mEq/L (98-107); Globulin 2.4 g/dL (2.4-3.5); Glucose 136 mg/dL (70-105); Magnesium 2.5 mg/dL (1.6-2.6); Osmolality,Calculated 280 (280-300); Phosphorous 3.6 mg/dL (2.7-4.5); Sodium 132 mEq/L (136-145); Total Protein 6.1 g/dL (6.4-8.9); eGFR For African Americans > 60 (> 60); eGFR For Non-African Americans > 60 (> 60)
[2021-05-04] MEDS: Cefepime HCl 2,000 MG in 0.9 % Sodium Chloride 10 ML IVP SCH ×2 (07:37→19:33)
[2021-05-04] MEDS: Pantoprazole 40 MG VIAL IVP SCH (08:02)
[2021-05-04] MEDS: Aspirin 81 MG TAB.CHEW PO SCH (08:02)
[2021-05-04] MEDS: Chlorhexidine Rinse 15 ML MOUTHWASH MM SCH ×2 (08:02→19:33)
[2021-05-04] MEDS ORDERED: Furosemide 40 MG/4 ML VIAL IVP ONE ×2 (09:02→15:31)
[2021-05-04] MEDS: Heparin 25,000UNIT/250ML 1/2NS 25,000 UNIT/250 ML IV.SOLN IVC SCH (11:25)
[2021-05-04] MEDS: *HR* Heparin 5,000 UNIT/ML VIAL IVP PRN (11:55)
[2021-05-04] MEDS: Furosemide 240 MG in 0.9 % Sodium Chloride 96 ML IVC SCH (12:13)
[2021-05-04] MEDS: Amiodarone Premix 360 MG/200 ML BAG IVC SCH ×2 (13:32)
[2021-05-04] MEDS: Nystatin SUSP 5 ML UD.LIQ PO SCH ×3 (14:07→19:33)
[2021-05-04 14:39] LABS: Amorphous Sediment,Urine Few per hpf (None-Few); Bacteria,Urine Few per hpf (None-Few); Bilirubin,Urine Negative (Negative); Blood,Urine Large (Negative); Clarity,Urine Turbid (Clear); Color,Urine Yellow (Yellow); Glucose,Urine (UA) Normal (Normal); Hyaline Casts,Urine Many per lpf (None Seen); Ketones,Urine Negative (Negative); Leukocyte Esterase,Urine Negative (Negative); Mucus,Urine Few per lpf (None-Few); Nitrite,Urine Negative (Negative); Protein,Urine 30 mg/dL (Neg-Trace); RBC,Urine TNTC per hpf (0-3); Squamous Epithelial Cell,Urine Few per hpf (None-Few); Urobilinogen,Urine Normal (Normal)
[2021-05-04] MEDS: Fat Emulsion 250 ML IVPB SCH (16:28)
[2021-05-04] MEDS ORDERED: 0.9 % Sodium Chloride 1,000 ML ONE (16:55)
[2021-05-04] MEDS ORDERED: Clinimix E 5%-15% SOLUTION 2,000 ML IVC SCH (17:00)
[2021-05-04 17:22] LABS: VBG Ionized Calcium 1.01 mmol/L (1.15-1.35)
[2021-05-04 17:23] LABS: Magnesium 2.6 mg/dL (1.6-2.6); Phosphorous 5.8 mg/dL (2.7-4.5)
[2021-05-04] MEDS: Nitroprusside 50 MG in D5% in Water 250 ML IVC SCH ×2 (17:23→21:35)
[2021-05-04 17:24] LABS: BUN/Creatinine Ratio 27 (6-26); Blood Urea Nitrogen 36 mg/dL (8-23); Calcium 7.8 mg/dL (8.6-10.3); Carbon Dioxide 28 mEq/L (23-29); Chloride 97 mEq/L (98-107); Glucose 174 mg/dL (70-105); Osmolality,Calculated 287 (280-300); Potassium 4.4 mEq/L (3.5-5.1); Sodium 132 mEq/L (136-145); eGFR For African Americans > 60 (> 60); eGFR For Non-African Americans 54 (> 60)
[2021-05-04 17:28] LABS: Blood Gas VT 450 cc; Mixed Venous Blood pCO2 46 mmHg (44-46); Mixed Venous Blood pH 7.34 pH Units (7.34-7.36); Mixed Venous Blood pO2 50 mmHg (35-45)
[2021-05-04 17:33] LABS: Mixed Venous Blood pCO2 65 mmHg (44-46); Mixed Venous Blood pH 7.26 pH Units (7.34-7.36); Mixed Venous Blood pO2 42 mmHg (35-45)
[2021-05-04 17:41] LABS: Blood Gas VT 450 cc; Mixed Venous Blood pCO2 66 mmHg (44-46); Mixed Venous Blood pH 7.26 pH Units (7.34-7.36); Mixed Venous Blood pO2 34 mmHg (35-45)
[2021-05-04 17:57] LABS: Blood Gas VT 450 cc; Mixed Venous Blood pCO2 63 mmHg (44-46); Mixed Venous Blood pH 7.27 pH Units (7.34-7.36); Mixed Venous Blood pO2 33 mmHg (35-45)
[2021-05-04 19:11] LABS: Mixed Venous Blood O2 Hgb 91.2 % (60-80)
[2021-05-04] MEDS ORDERED: *HR* Rocuronium Bromide 50 MG/5 ML VIAL IVP ONE (20:11)
[2021-05-05] MEDS: Nitroprusside 50 MG in D5% in Water 250 ML IVC SCH ×2 (00:14→15:26)
[2021-05-05] MEDS: Dexmedetomidine HCl 400 MCG/100 ML MLS IVC SCH ×3 (00:47→08:19)
[2021-05-05] MEDS ORDERED: Cisatracurium 200 MG in 0.9 % Sodium Chloride 180 ML IVC SCH (02:00)
[2021-05-05] MEDS: Heparin 25,000UNIT/250ML 1/2NS 25,000 UNIT/250 ML IV.SOLN IVC SCH ×2 (02:04→15:28)
[2021-05-05] MEDS: Amiodarone Premix 360 MG/200 ML BAG IVC SCH ×2 (02:11→13:59)
[2021-05-05] MEDS: FentaNYL (PF) 1,000 MCG/100 ML IV.SOLN IVC SCH ×5 (02:26→23:33)
[2021-05-05] MEDS: Norepinephrine 4 MG/254 ML IV.SOLN IVC SCH (03:11)
[2021-05-05] MEDS: Artificial Tears SOLN 15 ML BOTTLE BOTH EYES SCH ×3 (03:20→13:19)
[2021-05-05 03:42] LABS: Basophils # 0.1 K/mcL (0.0-0.2); Basophils % 0.3 %; Hematocrit 34.9 % (37.5-50.1); Hemoglobin 10.8 g/dL (12.9-16.9); Immature Granulocytes % 1.3 % (0-4); Lymphocytes # 0.9 K/mcL (0.6-4.6); Lymphocytes % 3.6 %; Mean Corpuscular HGB Conc 30.9 g/dL (31.6-35.5); Mean Corpuscular Hemoglobin 30.7 pg (28.0-33.3); Mean Corpuscular Volume 99.1 fL (83.0-100.0); Mean Platelet Volume 10.5 fL (9.4-12.4); Monocytes % 8.2 %; Neutrophils # 20.6 K/mcL (1.6-8.9); Nucleated Red Blood Cells 0.1 /100 WBC (0); Platelet Count 225 K/mcL (140-400); Red Blood Count 3.52 M/mcL (4.19-5.50); Red Cell Distribution Width 16.4 % (11.5-14.5); Segmented Neutrophils % 86.6 %
[2021-05-05 03:44] LABS: ABG Ionized Calcium 1.05 mmol/L (1.15-1.35)
[2021-05-05 03:49] LABS: White Blood Count 23.8 K/mcL (4.3-11.1)
[2021-05-05 04:03] LABS: Albumin 3.2 g/dL (3.5-5.7); Albumin/Globulin Ratio 1.3 (1.1-2.2); Bilirubin,Total 3.2 mg/dL (0.3-1.0); Calcium 7.2 mg/dL (8.6-10.3); Globulin 2.5 g/dL (2.4-3.5); Phosphorous 6.3 mg/dL (2.7-4.5); Potassium 4.5 mEq/L (3.5-5.1); Total Protein 5.7 g/dL (6.4-8.9)
[2021-05-05 04:30] LABS: ABG Base Excess -5 mEq/L (-2 to 3); ABG HCO3 29 mEq/L (21-27); ABG Oxygen Saturation 96 % (95-98); ABG PCO2 107 mmHg (35-45); ABG PH 7.04 pH Units (7.32-7.45); ABG PO2 118 mmHg (85-104); ABG TCO2 32 mEq/L (20-26); Blood Gas VT 450 cc
[2021-05-05] MEDS: Midazolam HCl 50 MG/100 ML IV.SOLN IVC SCH ×3 (05:30→18:05)
[2021-05-05 06:01] LABS: ABG Base Excess -2 mEq/L (-2 to 3); ABG HCO3 28 mEq/L (21-27); ABG Oxygen Saturation 97 % (95-98); ABG PCO2 82 mmHg (35-45); ABG PH 7.15 pH Units (7.32-7.45); ABG PO2 125 mmHg (85-104); ABG TCO2 31 mEq/L (20-26); Blood Gas Modality AF; Blood Gas VT 450 cc
[2021-05-05] MEDS: Calcium Gluconate 1gm/50mL 1 GM/50 ML BAG IVPB PRN (06:08)
[2021-05-05] MEDS: Piperacillin/Tazobactam 3.375 GM in 0.9 % Sodium Chloride Mini Bag 100 ML IVPB SCH (07:48)
[2021-05-05] MEDS: Cefepime HCl 2,000 MG in 0.9 % Sodium Chloride 10 ML IVP SCH (07:49)
[2021-05-05] MEDS: Pantoprazole 40 MG VIAL IVP SCH (07:49)
[2021-05-05] MEDS: Aspirin 81 MG TAB.CHEW PO SCH (08:03)
[2021-05-05] MEDS: Chlorhexidine Rinse 15 ML MOUTHWASH MM SCH ×2 (08:03→19:43)
[2021-05-05] MEDS: Nystatin SUSP 5 ML UD.LIQ PO SCH ×2 (08:03→13:19)
[2021-05-05] MEDS: Furosemide 240 MG in 0.9 % Sodium Chloride 96 ML IVC SCH (10:36)
[2021-05-05] MEDS ORDERED: Atropine Sulfate 1% 40 DROP/2 ML BOTTLE SL PRN (11:24)
[2021-05-05] MEDS ORDERED: Scopolamine Patch 1.5 MG PATCH.TD72 TD SCH (11:30)
[2021-05-05] MEDS ORDERED: *HR* LORazepam 2 MG/ML VIAL IVP PRN ×2 (13:25→15:00)
[2021-05-05] MEDS ORDERED: FentaNYL (PF) 1,000 MCG/100 ML IV.SOLN IVC SCH (13:25)
[2021-05-05] MEDS ORDERED: *HR* FentaNYL (PF) 100 MCG/2 ML VIAL IVP PRN (13:27)
[2021-05-05] MEDS ORDERED: Amiodarone Premix 360 MG/200 ML BAG IVC ONE (13:56)
[2021-05-05] MEDS ORDERED: *HR* Heparin 5,000 UNIT/ML VIAL IVP ONE (15:02)
[2021-05-05] MEDS ORDERED: *HR* Heparin 5,000 UNIT/ML VIAL IVP PRN ×2 (15:02)
[2021-05-05] MEDS: Cisatracurium 200 MG in 0.9 % Sodium Chloride 180 ML IVC SCH (15:26)
[2021-05-05] MEDS ORDERED: CLINIMIX IVPB SCH (17:00)
[2021-05-05] MEDS ORDERED: [UNRECOGNIZED DRUG - OTHER] IVPB SCH (17:00)
[2021-05-05] MEDS ORDERED: Clinimix E 5%-15% SOLUTION 2,000 ML IVC SCH (17:00)
[2021-05-05] MEDS ORDERED: SODIUM ACETATE IVPB SCH (17:00)
[2021-05-05] MEDS: Cefepime HCl 2,000 MG in 0.9 % Sodium Chloride Mini Bag 100 ML IVPB SCH (18:07)
[2021-05-05] MEDS ORDERED: Isovue-370 500 ML BOTTLE IVP ONE (22:03)
[2021-05-05 22:25] LABS: ABG Base Excess 1 mEq/L (-2 to 3); ABG HCO3 28 mEq/L (21-27); ABG Oxygen Saturation 100 % (95-98); ABG PCO2 59 mmHg (35-45); ABG PH 7.29 pH Units (7.32-7.45); ABG PO2 211 mmHg (85-104); ABG TCO2 30 mEq/L (20-26); Blood Gas VT 450 cc
[2021-05-05 22:33] LABS: Basophils # 0.1 K/mcL (0.0-0.2); Basophils % 0.3 %; Eosinophils % 0.2 %; Hematocrit 34.2 % (37.5-50.1); Hemoglobin 10.4 g/dL (12.9-16.9); Lymphocytes # 0.9 K/mcL (0.6-4.6); Lymphocytes % 5.9 %; Mean Corpuscular HGB Conc 30.4 g/dL (31.6-35.5); Mean Corpuscular Hemoglobin 29.2 pg (28.0-33.3); Mean Corpuscular Volume 96.1 fL (83.0-100.0); Mean Platelet Volume 10.7 fL (9.4-12.4); Monocytes # 1.6 K/mcL (0.0-1.3); Monocytes % 10.8 %; Neutrophils # 12.2 K/mcL (1.6-8.9); Nucleated Red Blood Cells 0.1 /100 WBC (0); Platelet Count 256 K/mcL (140-400); Red Blood Count 3.56 M/mcL (4.19-5.50); Red Cell Distribution Width 16.7 % (11.5-14.5); Segmented Neutrophils % 80.8 %; White Blood Count 15.1 K/mcL (4.3-11.1)
[2021-05-05 22:43] LABS: INR 1.2; Prothrombin Time 13.6 Seconds (9.4-12.1)
[2021-05-05 22:53] LABS: Albumin 3.1 g/dL (3.5-5.7); Albumin/Globulin Ratio 1.2 (1.1-2.2); Bilirubin,Direct 2.5 mg/dL (0.0-0.2); Bilirubin,Indirect 1.1 mg/dL (0.0-1.0); Bilirubin,Total 3.6 mg/dL (0.3-1.0); Globulin 2.6 g/dL (2.4-3.5); Total Protein 5.7 g/dL (6.4-8.9)
[2021-05-05 22:54] LABS: Calcium 7.1 mg/dL (8.6-10.3); Magnesium 2.5 mg/dL (1.6-2.6); Phosphorous 4.1 mg/dL (2.7-4.5)
[2021-05-05 23:12] LABS: Influenza A PCR Negative (Negative); Influenza B PCR Negative (Negative); Resp. Syncytial Virus PCR Negative (Negative)
[2021-05-05 23:13] LABS: SARS-CoV-2 by PCR (In House) Negative (Negative)
[2021-05-06] MEDS: Piperacillin/Tazobactam 3.375 GM in 0.9 % Sodium Chloride Mini Bag 100 ML IVPB SCH ×2 (00:36→07:40)
[2021-05-06] MEDS: Midazolam HCl 50 MG/100 ML IV.SOLN IVC SCH ×5 (00:57→23:45)
[2021-05-06 01:29] LABS: Albumin/Globulin Ratio 1.2 (1.1-2.2); Bilirubin,Total 3.6 mg/dL (0.3-1.0); Globulin 2.5 g/dL (2.4-3.5); Potassium 4.2 mEq/L (3.5-5.1); Total Protein 5.5 g/dL (6.4-8.9)
[2021-05-06] MEDS: Nitroprusside 50 MG in D5% in Water 250 ML IVC SCH ×2 (02:38→07:14)
[2021-05-06] MEDS: Amiodarone Premix 360 MG/200 ML BAG IVC SCH ×2 (03:01→14:55)
[2021-05-06] MEDS: Cisatracurium 200 MG in 0.9 % Sodium Chloride 180 ML IVC SCH ×2 (03:40→18:00)
[2021-05-06 04:12] LABS: ABG Base Excess 1 mEq/L (-2 to 3); ABG HCO3 27 mEq/L (21-27); ABG Oxygen Saturation 97 % (95-98); ABG PCO2 47 mmHg (35-45); ABG PH 7.36 pH Units (7.32-7.45); ABG PO2 100 mmHg (85-104); ABG TCO2 28 mEq/L (20-26); Blood Gas VT 450 cc
[2021-05-06] MEDS: FentaNYL (PF) 1,000 MCG/100 ML IV.SOLN IVC SCH ×3 (04:32→14:31)
[2021-05-06 04:56] LABS: Basophils # 0.1 K/mcL (0.0-0.2); Basophils % 0.3 %; Eosinophils % 0.1 %; Hematocrit 31.3 % (37.5-50.1); Hemoglobin 9.6 g/dL (12.9-16.9); Immature Granulocytes % 2.2 % (0-4); Lymphocytes # 0.9 K/mcL (0.6-4.6); Lymphocytes % 5.3 %; Mean Corpuscular HGB Conc 30.7 g/dL (31.6-35.5); Mean Corpuscular Hemoglobin 29.4 pg (28.0-33.3); Mean Corpuscular Volume 95.7 fL (83.0-100.0); Monocytes # 1.6 K/mcL (0.0-1.3); Monocytes % 9.7 %; Neutrophils # 13.8 K/mcL (1.6-8.9); Platelet Count 269 K/mcL (140-400); Red Blood Count 3.27 M/mcL (4.19-5.50); Red Cell Distribution Width 16.8 % (11.5-14.5); Segmented Neutrophils % 82.4 %; White Blood Count 16.7 K/mcL (4.3-11.1)
[2021-05-06 05:01] LABS: INR 1.2; Prothrombin Time 13.8 Seconds (9.4-12.1)
[2021-05-06 05:02] LABS: Heparin anti-factor XA UFH 0.51 IU/mL (0.30-0.70)
[2021-05-06 05:04] LABS: Activated Partial Thrombo Time 55.6 Seconds (26.0-36.0)
[2021-05-06] MEDS: Cefepime HCl 2,000 MG in 0.9 % Sodium Chloride Mini Bag 100 ML IVPB SCH ×2 (05:10→17:56)
[2021-05-06 05:11] LABS: Albumin 2.9 g/dL (3.5-5.7); Albumin/Globulin Ratio 1.2 (1.1-2.2); Bilirubin,Direct 2.4 mg/dL (0.0-0.2); Bilirubin,Indirect 1.1 mg/dL (0.0-1.0); Bilirubin,Total 3.5 mg/dL (0.3-1.0); Calcium 7.1 mg/dL (8.6-10.3); Globulin 2.4 g/dL (2.4-3.5); Magnesium 2.6 mg/dL (1.6-2.6); Phosphorous 3.3 mg/dL (2.7-4.5); Potassium 3.9 mEq/L (3.5-5.1); Total Protein 5.3 g/dL (6.4-8.9)
[2021-05-06] MEDS: Dexmedetomidine HCl 400 MCG/100 ML MLS IVC SCH ×3 (05:17→19:21)
[2021-05-06] MEDS: Heparin 25,000UNIT/250ML 1/2NS 25,000 UNIT/250 ML IV.SOLN IVC SCH ×2 (05:50→18:37)
[2021-05-06] MEDS: Aspirin 81 MG TAB.CHEW GTUBE SCH (07:40)
[2021-05-06] MEDS: Chlorhexidine Rinse 15 ML MOUTHWASH MM SCH ×2 (07:40→19:48)
[2021-05-06] MEDS: Furosemide 240 MG in 0.9 % Sodium Chloride 96 ML IVC SCH ×2 (09:38→09:46)
[2021-05-06 11:15] LABS: Albumin/Globulin Ratio 1.3 (1.1-2.2); Bilirubin,Indirect 1.1 mg/dL (0.0-1.0); Bilirubin,Total 3.1 mg/dL (0.3-1.0); Calcium 7.2 mg/dL (8.6-10.3); Globulin 2.4 g/dL (2.4-3.5); Magnesium 2.7 mg/dL (1.6-2.6); Potassium 4.1 mEq/L (3.5-5.1); Total Protein 5.4 g/dL (6.4-8.9)
[2021-05-06 11:18] LABS: ABG Base Excess 1 mEq/L (-2 to 3); ABG HCO3 27 mEq/L (21-27); ABG Oxygen Saturation 100 % (95-98); ABG PCO2 47 mmHg (35-45); ABG PH 7.36 pH Units (7.32-7.45); ABG PO2 221 mmHg (85-104); ABG TCO2 28 mEq/L (20-26); Blood Gas Modality ASSIST CONTROL; Blood Gas VT 450 cc
[2021-05-06] MEDS: Artificial Tears SOLN 15 ML BOTTLE BOTH EYES SCH ×4 (11:30→23:14)
[2021-05-06] MEDS ORDERED: Albumin 25% 25gram/100mL 25 GM/100 ML IV.SOLN IVPB ONE (15:31)
[2021-05-06 16:12] LABS: Basophils # 0.1 K/mcL (0.0-0.2); Basophils % 0.8 %; Eosinophils # 0.2 K/mcL (0.0-0.6); Eosinophils % 1.3 %; Hematocrit 32.4 % (37.5-50.1); Hemoglobin 10.4 g/dL (12.9-16.9); Immature Granulocytes % 4.2 % (0-4); Lymphocytes # 1.5 K/mcL (0.6-4.6); Lymphocytes % 11.3 %; Mean Corpuscular HGB Conc 32.1 g/dL (31.6-35.5); Mean Corpuscular Hemoglobin 30.6 pg (28.0-33.3); Mean Corpuscular Volume 95.3 fL (83.0-100.0); Mean Platelet Volume 10.9 fL (9.4-12.4); Monocytes # 1.2 K/mcL (0.0-1.3); Monocytes % 9.2 %; Neutrophils # 9.4 K/mcL (1.6-8.9); Nucleated Red Blood Cells 0.4 /100 WBC (0); Platelet Count 301 K/mcL (140-400); Red Cell Distribution Width 17.2 % (11.5-14.5); Segmented Neutrophils % 73.2 %; White Blood Count 12.8 K/mcL (4.3-11.1)
[2021-05-06 16:17] LABS: ABG Base Excess -1 mEq/L (-2 to 3); ABG HCO3 25 mEq/L (21-27); ABG Oxygen Saturation 100 % (95-98); ABG PCO2 46 mmHg (35-45); ABG PH 7.34 pH Units (7.32-7.45); ABG PO2 206 mmHg (85-104); ABG TCO2 27 mEq/L (20-26); Blood Gas Modality ASSIST CONTROL; Blood Gas VT 450 cc
[2021-05-06 16:42] LABS: Albumin 3.2 g/dL (3.5-5.7); Albumin/Globulin Ratio 1.3 (1.1-2.2); Bilirubin,Direct 2.2 mg/dL (0.0-0.2); Bilirubin,Indirect 1.1 mg/dL (0.0-1.0); Bilirubin,Total 3.3 mg/dL (0.3-1.0); Calcium 7.5 mg/dL (8.6-10.3); Globulin 2.5 g/dL (2.4-3.5); Magnesium 2.8 mg/dL (1.6-2.6); Phosphorous 3.7 mg/dL (2.7-4.5); Potassium 4.1 mEq/L (3.5-5.1); Total Protein 5.7 g/dL (6.4-8.9)
[2021-05-06 17:21] LABS: Activated Partial Thrombo Time 56.9 Seconds (26.0-36.0)
[2021-05-06 17:23] LABS: INR 1.2; Prothrombin Time 13.9 Seconds (9.4-12.1)
[2021-05-06 21:48] LABS: Hematocrit 32.5 % (37.5-50.1); Hemoglobin 10.3 g/dL (12.9-16.9); Mean Corpuscular HGB Conc 31.7 g/dL (31.6-35.5); Mean Corpuscular Hemoglobin 29.6 pg (28.0-33.3); Mean Corpuscular Volume 93.4 fL (83.0-100.0); Mean Platelet Volume 10.5 fL (9.4-12.4); Nucleated Red Blood Cells 0.6 /100 WBC (0); Platelet Count 295 K/mcL (140-400); Red Blood Count 3.48 M/mcL (4.19-5.50); Red Cell Distribution Width 17.5 % (11.5-14.5); White Blood Count 12.7 K/mcL (4.3-11.1)
[2021-05-06 21:49] LABS: Bilirubin,Urine Small (Negative); Blood,Urine Large (Negative); Clarity,Urine Cloudy (Clear); Color,Urine Yellow (Yellow); Glucose,Urine (UA) Normal (Normal); Ketones,Urine Trace mg/dL (Negative); Leukocyte Esterase,Urine Negative (Negative); Nitrite,Urine Negative (Negative); PH,Urine 6.5 pH Units (5.0-8.0); Protein,Urine >=300 mg/dL (Neg-Trace); Specific Gravity,Urine >= 1.030 (1.010-1.025); Urobilinogen,Urine Normal (Normal)
[2021-05-06 21:52] LABS: Hyaline Casts,Urine None Seen per lpf (None Seen); RBC,Urine 50-100 per hpf (0-3); Squamous Epithelial Cell,Urine None Seen per hpf (None-Few)
[2021-05-06 22:00] LABS: INR 1.3; Prothrombin Time 14.2 Seconds (9.4-12.1)
[2021-05-06 22:02] LABS: Activated Partial Thrombo Time 60.4 Seconds (26.0-36.0)
[2021-05-06 22:08] LABS: Albumin 3.3 g/dL (3.5-5.7); Albumin/Globulin Ratio 1.3 (1.1-2.2); Basophils # 0.5 K/mcL (0.0-0.2); Bilirubin,Direct 2.3 mg/dL (0.0-0.2); Bilirubin,Indirect 1.1 mg/dL (0.0-1.0); Bilirubin,Total 3.4 mg/dL (0.3-1.0); Calcium 7.6 mg/dL (8.6-10.3); Globulin 2.6 g/dL (2.4-3.5); Lymphocytes # 3.8 K/mcL (0.6-4.6); Magnesium 2.9 mg/dL (1.6-2.6); Monocytes # 0.8 K/mcL (0.0-1.3); Neutrophils # 7.6 K/mcL (1.6-8.9); Phosphorous 4.1 mg/dL (2.7-4.5); Total Protein 5.9 g/dL (6.4-8.9)
[2021-05-06 22:26] LABS: ABG Base Excess -3 mEq/L (-2 to 3); ABG HCO3 23 mEq/L (21-27); ABG Oxygen Saturation 99 % (95-98); ABG PCO2 43 mmHg (35-45); ABG PH 7.34 pH Units (7.32-7.45); ABG PO2 125 mmHg (85-104); ABG TCO2 25 mEq/L (20-26); Blood Gas Modality ASSIST CONTROL; Blood Gas VT 450 cc
[2021-05-07] MEDS: FentaNYL (PF) 1,000 MCG/100 ML IV.SOLN IVC SCH ×3 (00:36→11:03)
[2021-05-07] MEDS: Amiodarone Premix 360 MG/200 ML BAG IVC SCH ×2 (01:39→14:05)
[2021-05-07] MEDS: Dexmedetomidine HCl 400 MCG/100 ML MLS IVC SCH ×2 (01:39→09:32)
[2021-05-07 03:40] LABS: Basophils # 0.2 K/mcL (0.0-0.2); Basophils % 1.3 %; Eosinophils # 0.2 K/mcL (0.0-0.6); Eosinophils % 1.3 %; Hematocrit 33.3 % (37.5-50.1); Hemoglobin 10.8 g/dL (12.9-16.9); Immature Granulocytes % 4.9 % (0-4); Lymphocytes # 1.4 K/mcL (0.6-4.6); Lymphocytes % 9.8 %; Mean Corpuscular HGB Conc 32.4 g/dL (31.6-35.5); Mean Corpuscular Hemoglobin 30.5 pg (28.0-33.3); Mean Corpuscular Volume 94.1 fL (83.0-100.0); Mean Platelet Volume 10.7 fL (9.4-12.4); Monocytes # 1.5 K/mcL (0.0-1.3); Monocytes % 10.9 %; Neutrophils # 10.1 K/mcL (1.6-8.9); Nucleated Red Blood Cells 0.4 /100 WBC (0); Platelet Count 336 K/mcL (140-400); Red Blood Count 3.54 M/mcL (4.19-5.50); Red Cell Distribution Width 17.7 % (11.5-14.5); Segmented Neutrophils % 71.8 %; White Blood Count 14.1 K/mcL (4.3-11.1)
[2021-05-07 03:50] LABS: INR 1.3; Prothrombin Time 14.5 Seconds (9.4-12.1)
[2021-05-07 03:53] LABS: Activated Partial Thrombo Time 63.5 Seconds (26.0-36.0)
[2021-05-07] MEDS: Norepinephrine 4 MG/254 ML IV.SOLN IVC SCH ×2 (03:54→09:48)
[2021-05-07] MEDS: Artificial Tears SOLN 15 ML BOTTLE BOTH EYES SCH ×3 (03:55→11:15)
[2021-05-07 03:59] LABS: Albumin 3.3 g/dL (3.5-5.7); Albumin 3.4 g/dL (3.5-5.7); Albumin/Globulin Ratio 1.3 (1.1-2.2); Albumin/Globulin Ratio 1.4 (1.1-2.2); Bilirubin,Direct 2.4 mg/dL (0.0-0.2); Bilirubin,Indirect 1.1 mg/dL (0.0-1.0); Bilirubin,Total 3.5 mg/dL (0.3-1.0); Calcium 7.5 mg/dL (8.6-10.3); Globulin 2.4 g/dL (2.4-3.5); Globulin 2.6 g/dL (2.4-3.5); Potassium 4.1 mEq/L (3.5-5.1); Total Protein 5.8 g/dL (6.4-8.9); Total Protein 5.9 g/dL (6.4-8.9)
[2021-05-07 04:00] LABS: Albumin 3.3 g/dL (3.5-5.7); Albumin/Globulin Ratio 1.3 (1.1-2.2); Calcium 7.6 mg/dL (8.6-10.3); Globulin 2.5 g/dL (2.4-3.5); Magnesium 2.9 mg/dL (1.6-2.6); Phosphorous 4.9 mg/dL (2.7-4.5); Total Protein 5.8 g/dL (6.4-8.9)
[2021-05-07 04:35] LABS: ABG Base Excess -3 mEq/L (-2 to 3); ABG HCO3 23 mEq/L (21-27); ABG Oxygen Saturation 99 % (95-98); ABG PCO2 44 mmHg (35-45); ABG PH 7.33 pH Units (7.32-7.45); ABG PO2 142 mmHg (85-104); ABG TCO2 24 mEq/L (20-26); Blood Gas Modality ASSIST CONTROL; Blood Gas VT 450 cc
[2021-05-07] MEDS: Cisatracurium 200 MG in 0.9 % Sodium Chloride 180 ML IVC SCH (04:39)
[2021-05-07] MEDS: Midazolam HCl 50 MG/100 ML IV.SOLN IVC SCH ×2 (04:39→10:17)
[2021-05-07] MEDS: Cefepime HCl 2,000 MG in 0.9 % Sodium Chloride Mini Bag 100 ML IVPB SCH (05:10)
[2021-05-07] MEDS: Chlorhexidine Rinse 15 ML MOUTHWASH MM SCH (07:41)
[2021-05-07] MEDS: Aspirin 81 MG TAB.CHEW GTUBE SCH (07:41)
[2021-05-07] MEDS: Heparin 25,000UNIT/250ML 1/2NS 25,000 UNIT/250 ML IV.SOLN IVC SCH (09:00)
[2021-05-07] MEDS: Furosemide 240 MG in 0.9 % Sodium Chloride 96 ML IVC SCH (09:46)
[2021-05-07 11:00] LABS: Basophils # 0.2 K/mcL (0.0-0.2); Hematocrit 34.5 % (37.5-50.1); Hemoglobin 10.9 g/dL (12.9-16.9); Mean Corpuscular HGB Conc 31.6 g/dL (31.6-35.5); Mean Corpuscular Hemoglobin 29.9 pg (28.0-33.3); Mean Corpuscular Volume 94.8 fL (83.0-100.0); Mean Platelet Volume 10.9 fL (9.4-12.4); Nucleated Red Blood Cells 0.3 /100 WBC (0); Platelet Count 352 K/mcL (140-400); Red Blood Count 3.64 M/mcL (4.19-5.50); Red Cell Distribution Width 17.9 % (11.5-14.5); White Blood Count 14.7 K/mcL (4.3-11.1)
[2021-05-07 11:18] LABS: Albumin 3.4 g/dL (3.5-5.7); Albumin/Globulin Ratio 1.4 (1.1-2.2); Bilirubin,Direct 2.4 mg/dL (0.0-0.2); Bilirubin,Indirect 1.1 mg/dL (0.0-1.0); Bilirubin,Total 3.5 mg/dL (0.3-1.0); Calcium 7.7 mg/dL (8.6-10.3); Globulin 2.5 g/dL (2.4-3.5); Phosphorous 5.9 mg/dL (2.7-4.5); Potassium 4.4 mEq/L (3.5-5.1); Total Protein 5.9 g/dL (6.4-8.9)
[2021-05-07 11:23] LABS: Lymphocytes # 1.5 K/mcL (0.6-4.6); Monocytes # 2.1 K/mcL (0.0-1.3); Neutrophils # 10.7 K/mcL (1.6-8.9)
[2021-05-07 11:24] LABS: Anisocytosis 1+ (Not Present); Platelet Estimate Normal (Normal)
[2021-05-07 13:08] LABS: ABG Base Excess -5 mEq/L (-2 to 3); ABG HCO3 21 mEq/L (21-27); ABG Oxygen Saturation 94 % (95-98); ABG PCO2 40 mmHg (35-45); ABG PH 7.33 pH Units (7.32-7.45); ABG PO2 77 mmHg (85-104); ABG TCO2 22 mEq/L (20-26); Blood Gas Modality CPAP/PS; Blood Gas Pressure Support 8 cm H2O
[2021-05-07 13:38] LABS: Influenza A PCR Negative (Negative); Influenza B PCR Negative (Negative); Resp. Syncytial Virus PCR Negative (Negative); SARS-CoV-2 by PCR (In House) Negative (Negative)
[2021-05-07 15:13] VITALS: BP 126/63
[2021-05-07] MEDS ORDERED: *HR* LORazepam 2 MG/ML VIAL IVP PRN (15:34)
[2021-05-07] MEDS ORDERED: *HR* FentaNYL (PF) 100 MCG/2 ML VIAL IVP PRN (15:34)
[2021-05-07 16:35] VITALS: PULSE 98; TEMP 98.6; O2SAT 83
== END 2021-05-05 08:10 | disposition still patient (30) | DRG 270 ==
LOC: EMEROOARM 09:55 → ICNU 11:59 → UNDODISIN 05-07 17:36
PROVIDERS: ADMIT Family Medicine; ATTEND Internal Medicine Interventional Cardiology